=== PATIENT | female | born 1980 | race Caucasian/White ===

== ENCOUNTER → 2020-10-29 15:37 | Outpatient (CLI) | payer BC, SELFPAY ==
[2020-10-29 16:17] LABS: Basophils # 0.1 K/mm3 (0-0.2); Basophils % 0.8 % (0.1-2.0); Eosinophils # 0.2 K/mm3 (0.0-0.4); Eosinophils % 2.4 % (0.1-12.0); Hematocrit 36.1 % (37.0-47.0); Hemoglobin 11.3 g/dL (12.2-16.2); Lymphocytes % 37.1 % (10-50); Mean Corpuscular HGB Conc 31.2 g/dL (31.8-35.4); Mean Corpuscular Hemoglobin 26.4 pg (27.0-31.2); Mean Corpuscular Volume 84.8 fl (81-99); Mean Platelet Volume 12.4 fl (7.4-10.4); Monocytes # 0.4 K/mm3 (0.1-1.0); Monocytes % 4.5 % (1.7-9.3); Neutrophils # 4.5 K/mm3 (1.8-7.8); Neutrophils % 55.3 % (37.0-80.0); Platelet Count 216 K/mm3 (142-424); Red Blood Count 4.25 M/mm3 (4.20-5.40); Red Cell Distribution Width 16.4 % (11.5-17.5); White Blood Count 8.1 K/mm3 (4.8-10.8)
[2020-10-29 17:10] LABS: Alanine Aminotransferase 18 U/L (12-78); Albumin Level 4.1 g/dl (3.5-5.0); Albumin/Globulin Ratio 1.3 (1.1-1.8); Alkaline Phosphatase 75 U/L (38-126); Anion Gap 8.7 mEq/L (5-15); Aspartate Amino Transferase 24 U/L (14-36); Bilirubin,Total 0.3 mg/dl (0.2-1.3); Blood Urea Nitrogen 13 mg/dl (7-17); Calcium 8.7 mg/dl (8.4-10.2); Carbon Dioxide 27 mmol/L (22.0-30.0); Chloride 104 mmol/L (98-107); Chol/HDL Ratio 2.9 (1-3.5); Cholesterol 212 mg/dl (140-200); Estimated Glomerular Filt Rate 79 ml/min (>60); GFR (African American) 96 ML/MIN (>60); Globulin 3.2 g/dL (1.3-3.2); Glucose 89 mg/dl (74-100); HDL Cholesterol 74 mg/dl (40-60); Potassium 3.7 mmoL/L (3.5-5.1); Sodium 136 mmol/L (136-145); Total Protein,Serum 7.3 g/dl (6.3-8.2); Triglycerides 111 mg/dl (30-150); VLDL Cholesterol 22 mg/dL (0-40)
[2020-10-29 17:21] LABS: Direct LDL Cholesterol 95.11 mg/dL (100-129)
[2020-10-29 19:48] LABS: Free T4 (Free Thyroxine) 1.07 ng/dl (0.78-2.19)
[2020-10-31 08:15] LABS: FSH 8.9 mIU/mL (.); LH 25.1 mIU/mL (.)
[2020-10-31 11:19] LABS: Thyroid Stimulating Hormone 6.22 uIU/mL (0.465-4.68)
[2020-11-08 23:11] LABS: Estrogen 397 pg/mL (.)
== END ==
PROVIDERS: Visit Provider Nurse Practitioner Family
DX: Z00.00 Encounter for general adult medical examination without abnormal findings (principal); E03.9 Hypothyroidism, unspecified; E55.9 Vitamin D deficiency, unspecified; N92.6 Irregular menstruation, unspecified
CPT/HCPCS: 80053; 80061; 82306; 82672; 83001; 83002; 84439; 84443; 85025

== ENCOUNTER → 2021-01-23 16:28 | Outpatient (CLI) | payer BC, SELFPAY ==
[2021-01-23 17:15] LABS: Alanine Aminotransferase 15 U/L (12-78); Albumin/Globulin Ratio 1.3 (1.1-1.8); Alkaline Phosphatase 63 U/L (38-126); Anion Gap 17.1 mEq/L (5-15); Aspartate Amino Transferase 26 U/L (14-36); Bilirubin,Total 0.2 mg/dl (0.2-1.3); Blood Urea Nitrogen 10 mg/dl (7-17); Carbon Dioxide 27 mmol/L (22.0-30.0); Chloride 100 mmol/L (98-107); Chol/HDL Ratio 3.3 (1-3.5); Cholesterol 195 mg/dl (140-200); Estimated Glomerular Filt Rate 110 ml/min (>60); GFR (African American) 133 ML/MIN (>60); Globulin 3.1 g/dL (1.3-3.2); Glucose 82 mg/dl (74-100); HDL Cholesterol 60 mg/dl (40-60); Magnesium 1.7 mg/dl (1.6-2.3); Phosphorous 3.2 mg/dl (2.5-4.5); Potassium 3.1 mmoL/L (3.5-5.1); Sodium 141 mmol/L (136-145); Total Protein,Serum 7.1 g/dl (6.3-8.2); Triglycerides 84 mg/dl (30-150); VLDL Cholesterol 17 mg/dL (0-40)
[2021-01-23 17:27] LABS: Direct LDL Cholesterol 103.55 mg/dL (100-129)
[2021-01-23 17:28] LABS: Intact Parathyroid Hormone 89.9 pg/mL (7.5-53.5)
[2021-01-23 17:31] LABS: 25-OH Vitamin D, Total 28.2 ng/mL (30-100)
[2021-01-23 17:32] LABS: Free T4 (Free Thyroxine) 1.77 ng/dl (0.78-2.19)
[2021-01-23 17:47] LABS: Thyroid Stimulating Hormone 0.14 uIU/mL (0.465-4.68)
[2021-01-23 18:05] LABS: Vitamin B12 933 pg/mL (239-931)
[2021-01-23 18:30] LABS: Iron 42 ug/dL (37-170)
[2021-01-23 18:40] LABS: Total Iron Binding Capacity 323 ug/dL (265-497)
[2021-01-23 19:07] LABS: Ferritin 5.85 ng/ml (6.24-137)
[2021-01-28 17:45] LABS: Vitamin B6 8.3 ug/L (2.0-32.8)
[2021-01-29 15:49] LABS: Vitamin A 17.6 ug/dL (20.1-62.0)
== END ==
PROVIDERS: Visit Provider Nurse Practitioner Family
DX: Z00.00 Encounter for general adult medical examination without abnormal findings (principal); E03.9 Hypothyroidism, unspecified; E55.9 Vitamin D deficiency, unspecified; R53.83 Other fatigue; Z98.84 Bariatric surgery status
CPT/HCPCS: 80053; 80061; 82306; 82607; 82728; 83540; 83550; 83735; 83970; 84100; 84207; 84439; 84443; 84590